=== PATIENT | male | born 1975 | race Caucasian/White ===

== ENCOUNTER 2019-09-04 11:37 | Emergency (ER) | payer BC ==
[2019-09-04] MEDS ORDERED: Acetaminophen/HYDROcodone 325-5 MG Tab PO ONE (11:38)
--- NOTE | 2019-09-04 11:56 | EDM.PDOC ---
ED HPI GENERAL MEDICAL PROBLEM - General Chief Complaint: General Stated Complaint: left rib pain after fall yesterday Time Seen by Provider: 09/04/19 11:49 Source of Information: Reports: Patient, Family History Limitations: Reports: No Limitations - History of Present Illness INITIAL COMMENTS - FREE TEXT/NARRATIVE: Patient to the emergency department complaining of left lateral rib pain. The patient advises that he slipped and fell on the ice yesterday landing on his left ribs. The patient also thinks he did hit his head however there is no loss of consciousness he has no change in vision he has no ear, nose, throat symptoms denies any neck, back pain or stiffness. Denies any hip or pelvis pain denies any upper or lower extremity pain. The patient has no bruising or redness to the left lateral ribs however they are tender with palpation there is no subcutaneous emphysema and there is no flail segments. There is no abdominal pain no nausea no vomiting. Duration: Day(s): (Yesterday) Location: Reports: Other (Left ribs) Quality: Reports: Ache Severity: Moderate Improves with: Reports: None Worsens with: Reports: Movement Associated Symptoms: Reports: No Other Symptoms. 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 Denies: Fever, Chills HEENT: Reports: No Symptoms Respiratory: Reports: No Symptoms. Denies: Shortness of Breath, Wheezing, Cough Cardiovascular: Reports: No Symptoms. Denies: Chest Pain Endocrine: Reports: No Symptoms GI/Abdominal: Reports: No Symptoms. Denies: Abdominal Pain Musculoskeletal: Reports: Other (Left rib pain) Skin: Reports: No Symptoms. Denies: Bruising, Rash, Erythema Neurological: Reports: No Symptoms. Denies: Dizziness, Headache, Numbness Psychiatric: Reports: No Symptoms ED EXAM, GENERAL - Physical Exam Exam: See Below Exam Limited By: No Limitations General Appearance: Alert, WD/WN, No Apparent Distress Ears: Normal External Exam Nose: Normal Inspection Throat/Mouth: Normal Inspection, Normal Lips, Normal Voice, No Airway Compromise Head: Atraumatic, Normocephalic Neck: Normal Inspection, Supple, Non-Tender, Full Range of Motion Respiratory/Chest: No Respiratory Distress, Lungs Clear, Normal Breath Sounds Cardiovascular: Other (Left lateral rib pain with palpation) Peripheral Pulses: 2+: Radial (L), Radial (R) GI/Abdominal: Soft, Non-Tender Back Exam: Normal Inspection, Full Range of Motion Extremities: Normal Inspection, Normal Range of Motion, Non-Tender, Normal Capillary Refill Neurological: Alert, Oriented, Normal Cognition, Normal Gait, No Motor/Sensory Deficits Psychiatric: Normal Affect, Normal Mood Skin Exam: Warm, Dry, Intact, Normal Color, No Rash Course - Vital Signs Text/Narrative:: 1211 the patient did have a chest x-ray which revealed a fractured rib #8 on the left side. I do not see any other fractured ribs there is no pneumonias there is no pneumothorax no other abnormalities such as atelectasis etc. However, the radiology reading is still pending. The patient will be given [place] 5/325 mg 1 every 4-6 hours as needed for pain #4 tabs to go. The patient will have Toradol 10 mg 3 times daily as needed called in to [facility]. The patient was advised to splint his ribs cough and deep breathe several times a day to prevent any pneumonia. The patient will be off work for the next week and he will be advised to follow-up with his family doctor for further evaluation and treatment. He is to return to the emergency department sooner if worsening problems Last Recorded V/S: Last Vital Signs Temp 36.3 C 09/04/19 11:38 Pulse 57 L 09/04/19 11:38 Resp 18 09/04/19 11:38 BP 156/95 H 09/04/19 11:38 Pulse Ox 100 09/04/19 11:38 - Orders/Labs/Meds Orders: Active Orders 24 hr Category Date Time Status Ribs 2V w Chest Lt [CR] Stat Exams 09/04/19 12:00 Taken Acetaminophen/HYDROcodone [Take Home: Acetaminophen/ Med 09/04/19 12:10 Ordered HYDROcod, 2 Tab Pack] 2 packet PO Q4H PRN Departure - Departure Time of Disposition: 12:12 Disposition: Home, Self-Care 01 Condition: Good Clinical Impression: Left rib fracture, Fall - Discharge Information *PRESCRIPTION DRUG MONITORING PROGRAM REVIEWED*: Not Applicable *COPY OF PRESCRIPTION DRUG MONITORING REPORT IN PATIENT TAIWO: Not Applicable Prescriptions: Ketorolac [Toradol] 10 mg PO TID PRN 5 Days #12 tab PRN Reason: Pain (Moderate 4-6) Instructions: Rib Fracture Forms: ED Department Discharge Additional Instructions: Increase fluids Splint your ribs as discussed and cough and deep breathe every hour while awake to prevent pneumonia [place] 5/325 mg 1 every 4-6 hours as needed for pain Toradol 10 mg 3 times a day as needed for pain Follow-up with your family doctor this coming week, call tomorrow for an appointment time Return to the emergency department sooner if worse or any problems Sepsis Event Note - Evaluation Sepsis Screening Result: No Definite Risk - Focused Exam Vital Signs: Vital Signs Temp Pulse Resp BP Pulse Ox 09/04/19 11:38 36.3 C 57 L 18 156/95 H 100 Date Exam was Performed: 09/04/19 Time Exam was Performed: 12:10 - Problem List & Annotations (1) Fall SNOMED Code(s): 9919280, 500502497 Code(s): W19.XXXA - UNSPECIFIED FALL, INITIAL ENCOUNTER Status: Acute Priority: Medium Current Visit: Yes Qualifiers: Encounter type: initial encounter Qualified Code(s): W19.XXXA - Unspecified fall, initial encounter (2) Left rib fracture SNOMED Code(s): 83319064 Code(s): S22.32XA - FRACTURE OF ONE RIB, LEFT SIDE, INIT FOR CLOS FX Status : Acute Priority: Medium Current Visit: Yes Qualifiers: Encounter type: initial encounter Rib fracture type: single rib Fracture type: closed Qualified Code(s): S22.32XA - Fracture of one rib, left side, initial encounter for closed fracture - Problem List Review Problem List Initiated/Reviewed/Updated: Yes - My Orders Last 24 Hours: My Active Orders 09/04/19 12:00 Ribs 2V w Chest Lt [CR] Stat 09/04/19 12:10 Acetaminophen/HYDROcodone [Take Home: Acetaminophen/HYDROcod, 2 Tab Pack] 2 packet PO Q4H PRN - Assessment/Plan Last 24 Hours: My Active Orders 09/04/19 12:00 Ribs 2V w Chest Lt [CR] Stat 09/04/19 12:10 Acetaminophen/HYDROcodone [Take Home: Acetaminophen/HYDROcod, 2 Tab Pack] 2 packet PO Q4H PRN Plan: as above
[2019-09-04] MEDS ORDERED: Take Home: Acetaminophen/HYDROcodone 325-5 MG, 2 Tab Pack PO PRN (12:10)
== END 2019-09-04 12:22 | disposition home or self-care (01) ==
LOC: CC.ED 11:37
DX: S22.32XA Fracture of one rib, left side, initial encounter for closed fracture (principal); W01.0XXA Fall on same level from slipping, tripping and stumbling without subsequent striking against object, initial encounter
CPT/HCPCS: 71101-LT; 99283-25; A9270-GY

== ENCOUNTER → 2020-12-11 | Day surgery (SDC) | payer BC ==
[~2020-12-11] MED LIST: Lactated Ringers 1,000 ML IV ONE
--- NOTE | 2020-12-14 07:17 | OR ---
DATE OF OPERATION: 12/11/2020 PREOPERATIVE DIAGNOSIS: CHRONIC DIARRHEA. POSTOPERATIVE DIAGNOSIS: CHRONIC DIARRHEA. SURGEON: Darrin Ramos MD PROCEDURE: DIAGNOSTIC COLONOSCOPY WITH RANDOM BIOPSIES X6. ANESTHESIA: MAC. COMPLICATIONS: None. SPECIMEN: Random colon biopsies from terminal ileum to rectosigmoid junction. FINDINGS: 1. Full-length diagnostic colonoscopy. 2. No obvious signs of colitis or etiology of the patient's diarrhea. 3. Mild sigmoid diverticulosis. RECOMMENDATIONS: Medical followup pending path reports. Routine colonoscopy every 10 years. INDICATIONS: The patient presented with ongoing issues of diarrhea for years. Workup thus far has remained negative. We elected to proceed with diagnostic scope. DESCRIPTION OF PROCEDURE: The patient was prepped and draped, placed in the left lateral decubitus position. A lubricated Olympus colonoscope was inserted and easily advanced to the cecum. We were able to directly visualize the ileocecal valve and the appendiceal orifice. The bowel prep was excellent. Upon withdrawal, we did do random biopsy of the cecal pouch, which was otherwise unremarkable. The scope was intubated into the terminal ileum, which also looked benign and biopsy was taken of the terminal ileum. Throughout the length of the colon, I could find no signs of any polyps, masses, ulceration, bleeding sites, vascular abnormalities, or any signs of colitis. Random biopsies were taken including the terminal ileum, cecum, hepatic flexure, descending colon, sigmoid colon, and rectosigmoid junction. The patient did have a few diverticula in the sigmoid area, very minimal in severity. The rectal vault appeared benign. Retroflexion of the scope in the rectum showed no anal lesions. Air was suctioned and the scope was removed without complication. JOHANNA/DACIA /[id number]
== END ==
LOC: CC.SDS 09:50
PROVIDERS: ATTEND Family Medicine
DX: K52.9 Noninfective gastroenteritis and colitis, unspecified (principal); K57.30 Diverticulosis of large intestine without perforation or abscess without bleeding; Z98.890 Other specified postprocedural states
CPT/HCPCS: 00811; J7120